=== PATIENT | male | born 1950 | race Two or more races ===

== ENCOUNTER 2023-05-25 18:03 | Emergency (ER) | payer OTHER ==
[~2023-05-25] VITALS: Ht 177.8 cm; Wt 133.0 kg
[2023-05-25] MEDS ORDERED: cefTRIAXone SOD 1,000 MG VL IM ONE (19:15)
[2023-05-25] MEDS ORDERED: CEPH500C PO (19:19)
[2023-05-25] MEDS ORDERED: ACET500T58 PO (19:19)
[2023-05-25 19:41] VITALS: BP 140/72
== END 2023-05-25 20:15 | disposition home or self-care (01) ==
LOC: ER 18:03
DX: L03.116 Cellulitis of left lower limb (principal); I10 Essential (primary) hypertension; E11.9 Type 2 diabetes mellitus without complications; Z98.890 Other specified postprocedural states; Z79.1 Long term (current) use of non-steroidal anti-inflammatories (NSAID)
CPT/HCPCS: 93971; 96372; 99285; J0696